=== PATIENT | female | born 1970 | race Caucasian/White ===

== ENCOUNTER → 2016-05-25 16:15 | Outpatient (CLI) | payer OTHER ==
[2012-03-12 11:30] VITALS: BMI 31.7
== END | disposition home or self-care (01) ==
LOC: D.MAMMO 05-23 09:30
DX: Z12.31 Encounter for screening mammogram for malignant neoplasm of breast (principal)

== ENCOUNTER → 2018-01-22 17:42 | Outpatient (CLI) | payer OTHER ==
[2012-03-12 11:30] VITALS: BMI 31.7
[2018-01-22 18:54] LABS: T4 THYROXIN - FREE 1.26 ng/dL (0.76-1.46); T4 THYROXINE 12.8 ug/dL (4.7-13.3); THYROID STIMULATING HORMONE 3.97 uIU/mL (0.36-3.74)
== END | disposition home or self-care (01) ==
LOC: D.LABREF 17:42
DX: R00.0 Tachycardia, unspecified (principal)

== ENCOUNTER → 2018-03-17 08:21 | Outpatient (CLI) | payer OTHER ==
[2012-03-12 11:30] VITALS: BMI 31.7
== END | disposition home or self-care (01) ==
LOC: D.HCCARDIO 03-14 09:00
DX: I20.9 Angina pectoris, unspecified (principal)

== ENCOUNTER 2018-09-09 12:57 | Emergency (ER) | payer OTHER ==
[~2018-09-09] VITALS: Ht 160 cm; Wt 99.1 kg
[2018-09-09 13:05] VITALS: BP 126/82; Ht 160 cm; Wt 99.1 kg
[2018-09-09] MEDS ORDERED: METOPROLOL TART50 MG PO (13:09)
== END 2018-09-09 14:39 | disposition left against medical advice (07) ==
LOC: D.ER 12:57
DX: I10 Essential (primary) hypertension (principal)

== ENCOUNTER 2019-08-13 16:33 | Emergency (ER) | payer OTHER ==
[~2019-08-13] VITALS: Ht 160 cm; Wt 113.6 kg
[~2019-08-13 16:33] MED LIST: METOPROLOL TART50 MG PO
[2019-08-13 16:43] VITALS: Ht 160 cm; Wt 113.6 kg
[2019-08-13] MEDS ORDERED: CARDIZEM120 MG PO (16:55)
[2019-08-13] MEDS ORDERED: OMEPRAZOLE20 M1 PO (16:56)
[2019-08-13] MEDS ORDERED: LUNESTA2 M1 PO (16:56)
[2019-08-13] MEDS ORDERED: PAMELOR 25 MG C25 MG PO (16:57)
[2019-08-13] MEDS ORDERED: NAPROSYN500 MG PO (16:57)
[2019-08-13] MEDS ORDERED: ORSYTHIA1 EACH PO (16:57)
[2019-08-13 17:30] LABS: BASOPHILS 0.4 % (0-2); EOSINOPHILS 1.5 % (0-7); HEMATOCRIT 38.4 % (36.0-48.0); IMMATURE GRANULOCYTES 0.2 % (0-5); LYMPHOCYTES 31.4 % (15-50); MCH 27.2 pg (26.0-34.0); MCHC 31.3 g/dL (31.0-37.0); MCV 87.1 fL (80.0-100.0); MEAN PLATELET VOLUME 10.1 fL (7.4-10.4); MONOCYTES 9.5 % (2-11); PLATELET COUNT 398 10x3/uL (130-400); RBC 4.41 10x6/uL (4.00-5.40); RDW 13.4 % (11.5-14.5); WBC 8.5 10x3/uL (4.8-10.8)
[2019-08-13 17:39] LABS: APTT 25.3 SECONDS (22.8-39.4); INR 0.98 (0.85-1.17)
[2019-08-13 17:47] LABS: CALC OSMOLALITY 274 mosm/kg (275-300); CALCIUM 8.5 mg/dL (8.5-10.1); CARBON DIOXIDE 27.8 mmol/L (21.0-32.0); CHLORIDE - SERUM 100 mmol/L (98-107); CREATININE - SERUM 1.2 mg/dL (0.6-1.3); GLUCOSE 149 mg/dL (74-106); POTASSIUM - SERUM 3.1 mmol/L (3.5-5.1); SODIUM 136 mmol/L (136-145); UREA NITROGEN 13 mg/dL (7-18); eGFR NON AFRICAN AMERICAN 51 mL/min (90-120)
[2019-08-13 18:03] LABS: ALBUMIN 3.5 g/dL (3.4-5.0); ALKALINE PHOSPHATASE 70 U/L (30-120); ALT (SGPT) 23 U/L (10-68); BILIRUBIN - TOTAL 0.42 mg/dL (0.2-1.3); CKMB 0.5 U/L (0.0-3.6); CREATINE KINASE 94 UL (21-215); PROTEIN - SERUM 7.7 g/dL (6.4-8.2)
[2019-08-13 18:10] LABS: TROPONIN-I < 0.017 ng/mL (0.000-0.060)
[2019-08-13] MEDS ORDERED: CARDIZEM60 MG PO (19:10)
[2019-08-13 19:28] VITALS: BP 120/77
== END 2019-08-13 19:28 | disposition home or self-care (01) ==
LOC: D.ER 16:33
PROVIDERS: Family Medicine
DX: R00.2 Palpitations (principal); R00.0 Tachycardia, unspecified; R53.1 Weakness; I10 Essential (primary) hypertension

== ENCOUNTER → 2019-08-27 12:29 | Outpatient (CLI) | payer OTHER ==
[2019-08-13 16:43] VITALS: BMI 44.3
[~2019-08-27 12:29] MED LIST changes: +CARDIZEM120 MG PO; +CARDIZEM60 MG PO; +LUNESTA2 M1 PO; +NAPROSYN500 MG PO; +OMEPRAZOLE20 M1 PO; +ORSYTHIA1 EACH PO; +PAMELOR 25 MG C25 MG PO
== END | disposition home or self-care (01) ==
LOC: D.HCCECHO 12:29
PROVIDERS: ATTEND Internal Medicine Cardiovascular Disease
DX: I47.1 Supraventricular tachycardia (principal)

== ENCOUNTER 2020-04-06 15:07 | Inpatient (IN) | payer OTHER ==
[~2020-04-06] VITALS: Ht 160 cm; Wt 109.1 kg
[2020-04-06 15:38] VITALS: Ht 160 cm; Wt 109.1 kg
[2020-04-06 16:29] LABS: BASOPHILS 0.1 % (0-2); EOSINOPHILS 0 % (0-7); HEMOGLOBIN 13.9 g/dL (12-16); IMMATURE GRANULOCYTES 0.9 % (0-5); LYMPHOCYTES 10.3 % (15-50); MCH 27.1 pg (26.0-34.0); MCHC 33.1 g/dL (31.0-37.0); MCV 81.9 fL (80.0-100.0); MEAN PLATELET VOLUME 10.9 fL (7.4-10.4); MONOCYTES 8.7 % (2-11); RBC 5.13 10x6/uL (4.00-5.40); RDW 13.9 % (11.5-14.5); WBC 9.8 10x3/uL (4.8-10.8)
[2020-04-06 16:36] LABS: PLATELET COUNT 281 10x3/uL (130-400)
[2020-04-06 16:37] LABS: APTT 24.5 SECONDS (22.8-39.4); INR 1.09 (0.85-1.17)
[2020-04-06 16:39] LABS: CALC OSMOLALITY 277 mosm/kg (275-300); CALCIUM 8.4 mg/dL (8.5-10.1); CARBON DIOXIDE 25.9 mmol/L (21.0-32.0); CHLORIDE - SERUM 100 mmol/L (98-107); GLUCOSE 139 mg/dL (74-106); POTASSIUM - SERUM 3.2 mmol/L (3.5-5.1); SODIUM 137 mmol/L (136-145); UREA NITROGEN 18 mg/dL (7-18); eGFR NON AFRICAN AMERICAN 62 mL/min (90-120)
[2020-04-06 16:56] LABS: ALBUMIN 3.1 g/dL (3.4-5.0); ALKALINE PHOSPHATASE 62 U/L (30-120); ALT (SGPT) 30 U/L (10-68); BILIRUBIN - TOTAL 0.46 mg/dL (0.2-1.3); CREATINE KINASE 17 UL (21-215); PRO BNP 16 pg/mL (0-125); PROTEIN - SERUM 7.8 g/dL (6.4-8.2); TROPONIN-I < 0.017 ng/mL (0.000-0.060)
[2020-04-06 19:00] VITALS: BP 129/87
[2020-04-06 21:00] VITALS: BP 118/68
[2020-04-06 22:00] VITALS: BP 118/64
[2020-04-07] MEDS ORDERED: BETAPACE 80 MG80 MG PO (01:27)
[2020-04-07] MEDS ORDERED: HCTZ25 MG PO (01:29)
[2020-04-07] MEDS ORDERED: CYMBALTA30 MG PO (01:30)
[2020-04-07 01:31] VITALS: BP 124/85
[2020-04-07 05:45] VITALS: BP 119/78
[2020-04-07 06:21] LABS: BASOPHILS 0.2 % (0-2); EOSINOPHILS 0 % (0-7); HEMATOCRIT 40.1 % (36.0-48.0); HEMOGLOBIN 13.1 g/dL (12-16); IMMATURE GRANULOCYTES 1.9 % (0-5); LYMPHOCYTE ABS# 0.86 10x3/uL (1.18-3.74); LYMPHOCYTES 14.7 % (15-50); MCH 27.1 pg (26.0-34.0); MCHC 32.7 g/dL (31.0-37.0); MCV 82.9 fL (80.0-100.0); MEAN PLATELET VOLUME 10.8 fL (7.4-10.4); MONOCYTES 8.2 % (2-11); PLATELET COUNT 301 10x3/uL (130-400); RBC 4.84 10x6/uL (4.00-5.40); RDW 13.8 % (11.5-14.5)
[2020-04-07 06:38] LABS: WBC 5.9 10x3/uL (4.8-10.8)
[2020-04-07 07:08] LABS: ANION GAP 13.7 mmol/L (8-16); BILIRUBIN - TOTAL 0.35 mg/dL (0.2-1.3); CALCIUM 8.5 mg/dL (8.5-10.1); CARBON DIOXIDE 27.9 mmol/L (21.0-32.0); MAGNESIUM - SERUM 2.6 mg/dL (1.8-2.4); POTASSIUM - SERUM 3.6 mmol/L (3.5-5.1); PROTEIN - SERUM 7.6 g/dL (6.4-8.2)
--- NOTE | 2020-04-07 07:50 | NUR ---
AM MEDS GIVEN AT THIS TIME PER EMAR. PT SITTING UP IN BED WITH HOB RAISED WATCHING TV. PT AAOX3, PLEASANT AND ANSWERS QUESTIONS APPROP. RR EVEN NON LABORED. O2 IN PLACE VIA NC. NO NEEDS VOICED AT THIS TIME. CLWR.
[2020-04-07 08:02] VITALS: BP 116/74
[2020-04-07 09:26] LABS: C-REACTIVE PROTEIN 8.4 mg/dL (0.0-0.9)
--- NOTE | 2020-04-07 11:21 | NUR ---
PT SITTING UP IN BED WITH HOB RAISED, RR EVEN NON LABORED. O2 IN PLACE VIA NC. PT AAOX3, PLEASANT. MEDS GIVEN PER EMAR INCLDUING PRN TYLENOL FROM HEADACHE. NO NEEDS VOICED. CLWR.
--- NOTE | 2020-04-07 15:29 | NUR ---
PT GIVEN SCHEDULED MEDICATIONS. PT REQUESTED NEW IV D/T PLACEMENT. NEW IV STARTED TO RIGHT FOREARM, 20G. PT RR EVEN NON LABORED. ISNTRUCTED ON INCENTIVE SPIROMETER. O2 IN PLACE. NO NEEDS VOICED. CLWR.
[2020-04-07 15:52] VITALS: BP 112/69
[2020-04-07 20:44] VITALS: BP 113/80
--- NOTE | 2020-04-08 01:40 | NUR ---
I have reviewed this patient and I concur with the Shift Assessment completed by the Licensed Practical Nurse today this shift.
[2020-04-08 07:01] LABS: BASOPHILS 0.1 % (0-2); EOSINOPHILS 0 % (0-7); HEMATOCRIT 39.1 % (36.0-48.0); HEMOGLOBIN 12.7 g/dL (12-16); IMMATURE GRANULOCYTES 0.8 % (0-5); LYMPHOCYTE ABS# 1.62 10x3/uL (1.18-3.74); LYMPHOCYTES 11.4 % (15-50); MCH 26.9 pg (26.0-34.0); MCHC 32.5 g/dL (31.0-37.0); MCV 82.8 fL (80.0-100.0); MONOCYTES 8.6 % (2-11); NEUTROPHIL ABS# 11.25 10x3/uL (1.56-6.13); NEUTROPHILS 79.1 % (40-80); PLATELET COUNT 348 10x3/uL (130-400); RBC 4.72 10x6/uL (4.00-5.40); RDW 14.2 % (11.5-14.5); WBC 14.2 10x3/uL (4.8-10.8)
[2020-04-08 07:03] LABS: ALBUMIN 2.7 g/dL (3.4-5.0); ANION GAP 12.5 mmol/L (8-16); BILIRUBIN - TOTAL 0.4 mg/dL (0.2-1.3); CALCIUM 8.4 mg/dL (8.5-10.1); CREATININE - SERUM 0.9 mg/dL (0.6-1.3); MAGNESIUM - SERUM 2.2 mg/dL (1.8-2.4); POTASSIUM - SERUM 3.5 mmol/L (3.5-5.1)
[2020-04-08 09:14] VITALS: BP 102/69
[2020-04-08 12:36] VITALS: BP 91/59; BP 97/66
[2020-04-08 15:24] VITALS: BP 110/65
[2020-04-08 19:32] VITALS: BP 106/72
--- NOTE | 2020-04-08 22:02 | NUR ---
NOTIFIED BY LAB THAT [facility] HAD BEEN READY FOR TWO HOURS. NOTIFIED [facility] WILL TRANSFUSE AFTER PM MEDS. PT AWARE. NO S/S OF DISTRESS. CL IN REACH. WILL CPOC.
[2020-04-09 00:16] VITALS: BP 119/62
[2020-04-09 05:09] VITALS: BP 102/65
--- NOTE | 2020-04-09 05:58 | NUR ---
FIRST UNIT OF [facility] INFUSING ORDERED. PT TOLERATING WELL. NO DISTRESS. CL IN REACH
[2020-04-09 06:48] LABS: BASOPHILS 0.2 % (0-2); EOSINOPHILS 0 % (0-7); HEMATOCRIT 38.8 % (36.0-48.0); HEMOGLOBIN 12.4 g/dL (12-16); IMMATURE GRANULOCYTES 1.9 % (0-5); LYMPHOCYTES 27.1 % (15-50); MCH 26.7 pg (26.0-34.0); MCV 83.4 fL (80.0-100.0); MEAN PLATELET VOLUME 10.5 fL (7.4-10.4); MONOCYTES 11.8 % (2-11); NEUTROPHIL ABS# 5.02 10x3/uL (1.56-6.13); PLATELET COUNT 294 10x3/uL (130-400); RBC 4.65 10x6/uL (4.00-5.40); RDW 14.1 % (11.5-14.5)
[2020-04-09 06:49] LABS: WBC 8.5 10x3/uL (4.8-10.8)
[2020-04-09 07:00] VITALS: BP 103/69
[2020-04-09 08:08] LABS: CREATININE - SERUM 0.9 mg/dL (0.6-1.3)
[2020-04-09 08:09] LABS: ALBUMIN 2.8 g/dL (3.4-5.0); ALKALINE PHOSPHATASE 55 U/L (30-120); ALT (SGPT) 21 U/L (10-68); BILIRUBIN - TOTAL 0.46 mg/dL (0.2-1.3); CALC OSMOLALITY 277 mosm/kg (275-300); CALCIUM 8.3 mg/dL (8.5-10.1); CARBON DIOXIDE 28.7 mmol/L (21.0-32.0); CHLORIDE - SERUM 101 mmol/L (98-107); CREATININE - SERUM 0.8 mg/dL (0.6-1.3); GLUCOSE 106 mg/dL (74-106); MAGNESIUM - SERUM 2.3 mg/dL (1.8-2.4); POTASSIUM - SERUM 3.6 mmol/L (3.5-5.1); PROTEIN - SERUM 6.4 g/dL (6.4-8.2); SODIUM 138 mmol/L (136-145); UREA NITROGEN 19 mg/dL (7-18); eGFR NON AFRICAN AMERICAN 81 mL/min (90-120)
--- NOTE | 2020-04-09 08:43 | NUR ---
AM MEDS GIVEN AT THIS TIME. PT A/O X4, RESP EVEN AND NONLABORED ON 5L NC. RT AC AND LT AC IV SL. SR 67 WITH 1 DEGRRE BLOCK. PT DENIES ANY NEEDS AT THIS TIME. CALL LIGHT IN REACH, WILL CONTINUE PLAN OF CARE.
[2020-04-09 12:00] VITALS: BP 101/51
[2020-04-09 15:00] VITALS: BP 99/61
--- NOTE | 2020-04-09 17:02 | NUR ---
RT AC IV INFILTRATED, D/C IV WITH CATHETER TIP INTACT. NEW 20G IV STARTED TO RT HAND X1 STICK, PT TOLERATED WELL, IVPB REMDESIVIR HUNG AT THIS TIME.
[2020-04-09 20:30] VITALS: BP 104/55
--- NOTE | 2020-04-09 21:00 | NUR ---
RECEIVED PATIENT SITTING UP IN BED WATCHING TV. NO S/.S. OF DISTRESS. ASSESSMENT COMPLETE. MEDS TO BE PASSED SHORTLY. INSTRCUTED PATIENT TO CALL OUT WIT ANY NEEDS. PVU.
[2020-04-10] VITALS (8 sets, daily range): BP systolic 91–123; BP diastolic 54–710
--- NOTE | 2020-04-10 | NUR ---
PATIENT AWAKE IN ROOM WATCHING TV. NO S/S OF DITRESS. AAOX4. DENIES PAIN OR INCRESED SOB. 02 AT 5L NC. DENIES ANY NEEDS OR CONCERNS AT THIS TIME. INSTRUCTED PATIENT TO CALL OUT WITH ANY NEEDS. PVU.
[2020-04-10 05:59] LABS: BASOPHILS 0.1 % (0-2); EOSINOPHILS 0.1 % (0-7); HEMATOCRIT 37.2 % (36.0-48.0); HEMOGLOBIN 12.1 g/dL (12-16); IMMATURE GRANULOCYTES 1.4 % (0-5); LYMPHOCYTE ABS# 1.77 10x3/uL (1.18-3.74); LYMPHOCYTES 16.8 % (15-50); MCH 26.8 pg (26.0-34.0); MCHC 32.5 g/dL (31.0-37.0); MCV 82.3 fL (80.0-100.0); MEAN PLATELET VOLUME 10.3 fL (7.4-10.4); MONOCYTES 11.5 % (2-11); NEUTROPHIL ABS# 7.41 10x3/uL (1.56-6.13); NEUTROPHILS 70.1 % (40-80); PLATELET COUNT 290 10x3/uL (130-400); RBC 4.52 10x6/uL (4.00-5.40); RDW 13.9 % (11.5-14.5); WBC 10.6 10x3/uL (4.8-10.8)
[2020-04-10 06:31] LABS: ALBUMIN 2.6 g/dL (3.4-5.0); ALKALINE PHOSPHATASE 56 U/L (30-120); ALT (SGPT) 20 U/L (10-68); BILIRUBIN - TOTAL 0.63 mg/dL (0.2-1.3); CALC OSMOLALITY 269 mosm/kg (275-300); CALCIUM 8.7 mg/dL (8.5-10.1); CARBON DIOXIDE 27.7 mmol/L (21.0-32.0); CHLORIDE - SERUM 99 mmol/L (98-107); CREATININE - SERUM 0.8 mg/dL (0.6-1.3); GLUCOSE 123 mg/dL (74-106); MAGNESIUM - SERUM 2.1 mg/dL (1.8-2.4); POTASSIUM - SERUM 3.2 mmol/L (3.5-5.1); PROTEIN - SERUM 6.8 g/dL (6.4-8.2); SODIUM 134 mmol/L (136-145); UREA NITROGEN 16 mg/dL (7-18); eGFR NON AFRICAN AMERICAN 81 mL/min (90-120)
--- NOTE | 2020-04-10 09:54 | NUR ---
INFORMED DR. SOARES THAT PT IS ASKING FOR SOMETHING ELSE FOR HER HEADACHE, STATES TRAMADOL AND TYLENOL ARE NOT HELPING. NEW ORDER FOR FIORECET ONE TIME DOSE.
--- NOTE | 2020-04-10 11:00 | NUR ---
PT STATES THAT HER HEADACHE IS GONE, DENIES ANY NEEDS AT THIS TIME. CALL LIGHT IN REACH.
--- NOTE | 2020-04-10 11:24 | NUR ---
PLASMA STARTED INFUSING AT THIS TIME. VITAL SIGNS STABLE, PT DENIES ANY NEEDS AT THIS TIME, WILL MONITOR FOR FIRST 15MIN.
--- NOTE | 2020-04-10 17:25 | NUR ---
CALLED ROBLES ESPARZA APRN AND INFORMED HER THAT PT IS HAVING MIGRAINE AGAIN THAT DR. SOARES GAVE HER A ONE TIME DOSE OF FIORECET THIS AM FOR HER MIGRAINE AND PT WANTS TO KNOW IF SHE CAN HAVE IT AGAIN, PER ROBLES ESPARZA APRN ORDER FIORECET Q6PRN.
--- NOTE | 2020-04-10 17:56 | NUR ---
GAVE FIORICET FOR PAIN LEVEL OF 6/10. IVPB REMDESIVIR HUNG AT THIS TIME. PT DENIES ANY OTHER NEEDS AT THIS TIME. CALL LIGHT IN REACH.
--- NOTE | 2020-04-10 19:11 | NUR ---
pt awake watching tv, eating chips, denies any needs. Will cotninue to monitor
[2020-04-11] VITALS (7 sets, daily range): BP systolic 98–126; BP diastolic 55–82
[2020-04-11 09:02] LABS: BASOPHILS 0.1 % (0-2); EOSINOPHILS 0.5 % (0-7); HEMATOCRIT 39.6 % (36.0-48.0); HEMOGLOBIN 12.8 g/dL (12-16); IMMATURE GRANULOCYTES 1.4 % (0-5); LYMPHOCYTE ABS# 1.57 10x3/uL (1.18-3.74); LYMPHOCYTES 11.6 % (15-50); MCH 27.1 pg (26.0-34.0); MCHC 32.3 g/dL (31.0-37.0); MCV 83.9 fL (80.0-100.0); MEAN PLATELET VOLUME 10.3 fL (7.4-10.4); MONOCYTES 10.3 % (2-11); NEUTROPHILS 76.1 % (40-80); PLATELET COUNT 330 10x3/uL (130-400); RBC 4.72 10x6/uL (4.00-5.40); RDW 13.8 % (11.5-14.5)
[2020-04-11 09:14] LABS: WBC 13.5 10x3/uL (4.8-10.8)
[2020-04-11 09:22] LABS: ALBUMIN 2.8 g/dL (3.4-5.0); ANION GAP 9.9 mmol/L (8-16); BILIRUBIN - TOTAL 0.68 mg/dL (0.2-1.3); CARBON DIOXIDE 28.2 mmol/L (21.0-32.0); MAGNESIUM - SERUM 2.2 mg/dL (1.8-2.4); PROTEIN - SERUM 7.4 g/dL (6.4-8.2)
[2020-04-11 09:23] LABS: POTASSIUM - SERUM 4.1 mmol/L (3.5-5.1)
--- NOTE | 2020-04-11 15:30 | NUR ---
PT'S O2 STAYING 96-98 ON 3L NC, TURNED O2 DOWN TO 2L, AFTER 3MIN O2 RUNNING 96%. ALL NEEEDS MET, CALL LIGHT IN REACH.
--- NOTE | 2020-04-11 17:41 | NUR ---
FIORECET GIVEN FOR PAIN LEVEL OF 4/10. ALSO PROVIDED PT WITH ICE WATER. PT RESTING COMFORTABLY IN BED, DENIES ANY OTHER NEEDS, CALL LIGHT IN REACH.
--- NOTE | 2020-04-11 21:18 | NUR ---
PT RIGHT HAND piv INFILTRATED, TENDER, SLIGHTLY SOWLLEN, UNBALE TO REPLACE SPOKE WITH MADDY MARTINEZ PA WILL LEAVE PIV OUT AND CHANGE AZITHROMYCIN TO PO CHANGE ROCPEHIN TO OMNICEF BOTH FOR 5 DAYS TOTAL
[2020-04-12 07:12] LABS: ALBUMIN 2.5 g/dL (3.4-5.0); ALKALINE PHOSPHATASE 54 U/L (30-120); ALT (SGPT) 17 U/L (10-68); BILIRUBIN - TOTAL 0.49 mg/dL (0.2-1.3); CALC OSMOLALITY 272 mosm/kg (275-300); CALCIUM 8.4 mg/dL (8.5-10.1); CARBON DIOXIDE 28.9 mmol/L (21.0-32.0); CHLORIDE - SERUM 102 mmol/L (98-107); CREATININE - SERUM 0.8 mg/dL (0.6-1.3); GLUCOSE 100 mg/dL (74-106); POTASSIUM - SERUM 3.8 mmol/L (3.5-5.1); PROTEIN - SERUM 6.7 g/dL (6.4-8.2); SODIUM 137 mmol/L (136-145); UREA NITROGEN 11 mg/dL (7-18); eGFR NON AFRICAN AMERICAN 81 mL/min (90-120)
[2020-04-12 07:16] LABS: BASOPHILS 0.1 % (0-2); HEMATOCRIT 36.1 % (36.0-48.0); HEMOGLOBIN 11.5 g/dL (12-16); IMMATURE GRANULOCYTES 1.9 % (0-5); LYMPHOCYTE ABS# 1.48 10x3/uL (1.18-3.74); LYMPHOCYTES 14.8 % (15-50); MCH 26.6 pg (26.0-34.0); MCHC 31.9 g/dL (31.0-37.0); MCV 83.6 fL (80.0-100.0); MEAN PLATELET VOLUME 10.1 fL (7.4-10.4); MONOCYTES 13.8 % (2-11); NEUTROPHIL ABS# 6.82 10x3/uL (1.56-6.13); NEUTROPHILS 68.4 % (40-80); PLATELET COUNT 309 10x3/uL (130-400); RBC 4.32 10x6/uL (4.00-5.40); RDW 13.9 % (11.5-14.5)
[2020-04-12 08:05] VITALS: BP 98/59
--- NOTE | 2020-04-12 08:29 | NUR ---
AM MEDS GIVEN AT THIS TIME PER EMAQuan PRINCE IN ROOM AND SPOKE WITH PT REGARDING BEING ABLE TO D/C HOME. WILL AMBULATE PT AND SEE TOLERANCE. PT AAOX3 PLEASANT AND ANSWERS QUESTIONS APPROP. NO FURTHER NEEDS VOICED. CLWR.
--- NOTE | 2020-04-12 09:40 | NUR ---
PT PLACED ON ROOM AIR AND SATURATION WAS 87%. PLACED BACK ONTO O2 AT 2L SATURATION INCREASED TO 93%. PT AMBULATED IN ROOM WITH O2 IN PLACE. SATURATION VARIED BETWEEN 88%-91% WITH O2 AT 2L. PT APPEARS SOB WITH EXERTION. RR EVEN , SLIGHTY TACHY. ENCOURAGED PT TO TAKE SLOW DEEP BREATHS. PT STATES UNDERSTANDING AND FOLLOWED INSTRUCTION. O2 SATURATION WHILE SITTING WITH O2 IN PLACE IS 92%. PT DOES NOT APPEAR IN DISTRESS. NO NEEDS VOICED. CLWR.
[2020-04-12 11:08] VITALS: BP 118/66
--- NOTE | 2020-04-12 11:15 | NUR ---
PT SITTING UP IN BED WATCHING TV, RR EVEN NON LABORED. NO NEEDS VOICED. HAT GIVEN TO PT BROUGHT BY FAMILY MEMBER, NO NEEDS VOICED AT THIS TIME. CLWR.
[2020-04-12] MEDS ORDERED: OMNICEF300 MG PO (12:17)
[2020-04-12] MEDS ORDERED: COMBIVENT RESPIM4 GM INH (12:18)
[2020-04-12] MEDS ORDERED: ZITHROMAX250 MG PO (12:18)
[2020-04-12] MEDS ORDERED: VENTOLIN HFA [SP8 GM INH (12:19)
[2020-04-12] MEDS ORDERED: ZINC-220220 MG PO (12:20)
[2020-04-12] MEDS ORDERED: TESSALON PERLE100 MG PO (12:20)
[2020-04-12] MEDS ORDERED: MUCINEX600 MG PO (12:21)
[2020-04-12] MEDS ORDERED: VITAMIN D325 MC1 PO (12:21)
[2020-04-12] MEDS ORDERED: DULERA 200 MCG8.8 GM INH (12:21)
[2020-04-12] MEDS ORDERED: MELATONIN 3 MG1 TAB PO (12:21)
[2020-04-12] MEDS ORDERED: FLORAJEN3 CAPS460 MG PO (12:21)
[2020-04-12] MEDS ORDERED: VITAMIN C500 M1 PO (12:22)
[2020-04-12] MEDS ORDERED: TORADOL10 MG PO (12:22)
[2020-04-12] MEDS ORDERED: BUTALB-APAP-CA1 EACH PO (12:23)
--- NOTE | 2020-04-12 12:30 | NUR ---
SCHEDULED MED GIVEN PER EMAR. PT LYING IN BED WITH HOB RAISED, O2 IN PLACE VIA NC. RR EVEN NON LABORED. NO NEEDS VOICED AT THIS TIME. CLWR.
--- NOTE | 2020-04-12 13:22 | NUR ---
D/C INSTRUCTIONS GIVEN TO PT AT THIS TIME INCLUDING MEDICATIONS, FOLLOW UP APPOINTMENTS AND SIGNS AND SYMPTOMS TO MONITOR. PT STATES UNDERSTANDING. INSTRUCTED PT REGARDING HOME O2 AND WAITING FOR PORTABLE TO ARRIVE FOR D/C HOME. PT STATES UNDERSTANDING. NO DISTRESS NOTED. RR EVEN NON LABORED, O2 IN PLACE. WILL CONTINUE TO MONITOR.
--- NOTE | 2020-04-12 14:01 | NUR ---
NOTIFIED PT OF O2 ARRIVAL. PT STATES UNDERSTANDING AND IS GATHERING HER BELONGINGS. PT DENIES NEEDING ASSISTANCE AT THIS TIME. EDUCATION GIVEN REGARDING NUMBER TO CALL FOR HOME O2 UPON D/C. PT STATES UNDERSTANDING. NO NEEDS VOICED. CLWR.
--- NOTE | 2020-04-12 15:01 | NUR ---
PT WHEELED OUT TO PRIVATE VEHICLE AT THIS TIME BY PCT WITH ALL BELONGINGS WITH PT TIME OF DEPARTURE. PORTABLE O2 CONNECTED AND WITH PT INCLUDING PHONE NUMBER TO CALL FOR HOME SET UP. NO DITRESS NOTED ON DEPARTURE.
--- NOTE | 2020-04-14 00:02 | MORECARE ---
CASE MANAGEMENT DISCHARGE SUMMARY PATIENT: PREMA MORENO UNIT: [id number] ADM DATE: 04/06/20 AGE: 49 : 70 SEX: F ROOM/BED: D.4290 AUTHOR: AUDREY,DOC PHYSICIAN: REFERRING PHYSICIAN: TENZIN LARRY MD DATE OF SERVICE: 04/14/20 Discharge Plan Patient Name: PREMA MORENO Facility: [facility]:[place] : 1970 Planned Disposition: Home Anticipated Discharge Date: Discharge Date: 04/12/2020 Expected LOS: Initial Reviewer: [email or web address] Initial Review Date: 04/06/2020 Generated: 04/14/20 1:01 am Comments DCP- Discharge Planning Updated by [id number]: Lorraine Bernard on 04/13/20 10:[address] Patient Name: PREMA MORENO Admission Status: ER Accout number: [id number] Admission Date: 04-06-2020 : 1970 Admission Diagnosis:COVID-19 Attending: TENZIN LARRY Current LOS: 6 Anticipated DC Date: Planned Disposition: Home Primary Insurance: [employer] Discharge Planning Comments: CM met with patient to complete initial dc planning assessment. CM educated patient on the CM role and verbal consent given by patient to complete assessment. Patient lives at home with family. Patient is independent. At discharge patient plans to return home and feels this is a safe discharge. CM discussed availability of home health, rehab services, and medical equipment. [facility] for [facility] for [place] 02. Patient will have family to transport home. Patient denied known discharge needs at this time. CM will continue to follow and will assist as needed with dc plans/needs. potable 02 delivered to patient room prior to discharge and concentrator delivered to home Military Nurse: Lorraine Bernard DCPIA - Discharge Planning Initial Assessment Updated by [email or web address]: Lorraine Bernard on 04/13/20 11:56 pm * Is the patient Alert and Oriented? Yes * How many steps to enter\exit or inside your home? * PCP [facility] * Pharmacy [facility] * Preadmission Environment Home with Family * ADLs Independent * Equipment None * List name and contact numbers for known caregivers / representatives who currently or will assist patient after discharge: SHARATH MORENO - SPOUSE - [phone] * Verbal permission to speak to the caregivers and representatives has been obtained from the patient. Yes * Community resources currently utilized None * Additional services required to return to the preadmission environment? No * Can the patient safely return to the preadmission environment? Yes * Has this patient been hospitalized within the prior 30 days at any hospital? No External Providers External Provider: Yoko Next Contact Date: Service Request Date: Service Type: Resolution: Reviewer: Comments: Coverage Notice Reviewer: [id number] Shreya Bernard Notice Issued Date-Time: 04/12/2020 10:00 Notice Type: Patient Choice Letter Notice Delivered To: Patient Relationship to Patient: Self Watch Inspector Name: Delivery Method: HAND - Hand Delivered Laura Days: Prior Verbal Notification: Yes Recipient Understood Notice: Yes Recipient Signature: Med Rec Note Co-signed by Attending: Coverage Notice Comment: RUSLAN Patient Name: PREMA MORENO Page [id number] at 0002 All edits/amendments must be made on the electronic document DICTATION DATE: 04/14/20 0001 EP TECHNOLOGIST: GÉNESIS 04/14/20 0001 RPT#: [id number] DC DATE:04/12/20 STATUS: DIS IN [facility] [address] [place] [address] END OF REPORT
== END 2020-04-12 15:00 | disposition home or self-care (01) | DRG 177 ==
LOC: D.ER 15:07 → D.EDHOLD 17:31 → D.M2 17:31
PROVIDERS: Family Medicine; Internal Medicine Pulmonary Disease; ADMIT Family Medicine; ATTEND Family Medicine
PROC: XW033E5 Introduction of Remdesivir Anti-infective into Peripheral Vein, Percutaneous Approach, New Technology Group 5 (ICD-10-PCS; principal; 2020-04-07)
PROC: XW13325 Transfusion of Convalescent Plasma (Nonautologous) into Peripheral Vein, Percutaneous Approach, New Technology Group 5 (ICD-10-PCS; 2020-04-09)
DX: U07.1 COVID-19 (principal); J12.82 Pneumonia due to coronavirus disease 2019; J96.01 Acute respiratory failure with hypoxia; Z68.41 Body mass index [BMI] 40.0-44.9, adult; J98.11 Atelectasis; E87.6 Hypokalemia; I10 Essential (primary) hypertension; E66.9 Obesity, unspecified

== ENCOUNTER 2020-06-08 18:49 | Inpatient (IN) | payer OTHER ==
[~2020-06-08] VITALS: Ht 160 cm; Wt 113.6 kg
[~2020-06-08 18:49] MED LIST changes: +BETAPACE 80 MG80 MG PO; +BUTALB-APAP-CA1 EACH PO; +COMBIVENT RESPIM4 GM INH; +CYMBALTA30 MG PO; +DULERA 200 MCG8.8 GM INH; +FLORAJEN3 CAPS460 MG PO; +HCTZ25 MG PO; +MELATONIN 3 MG1 TAB PO; +MUCINEX600 MG PO; +OMNICEF300 MG PO; +TESSALON PERLE100 MG PO; +TORADOL10 MG PO; +VENTOLIN HFA [SP8 GM INH; +VITAMIN C500 M1 PO; +VITAMIN D325 MC1 PO; +ZINC-220220 MG PO; +ZITHROMAX250 MG PO
[2020-06-08 19:00] VITALS: BP 127/72
[2020-06-08 19:39] LABS: BASOPHILS 0.5 % (0-2); EOSINOPHILS 0.1 % (0-7); HEMOGLOBIN 12.3 g/dL (12-16); IMMATURE GRANULOCYTES 0.3 % (0-5); LYMPHOCYTE ABS# 2.63 10x3/uL (1.18-3.74); LYMPHOCYTES 34.8 % (15-50); MCH 27.6 pg (26.0-34.0); MCHC 32.4 g/dL (31.0-37.0); MCV 85.4 fL (80.0-100.0); MONOCYTES 9.3 % (2-11); NEUTROPHIL ABS# 4.16 10x3/uL (1.56-6.13); PLATELET COUNT 355 10x3/uL (130-400); RBC 4.45 10x6/uL (4.00-5.40); RDW 15.1 % (11.5-14.5); WBC 7.6 10x3/uL (4.8-10.8)
[2020-06-08 19:49] LABS: APTT 23.5 SECONDS (22.8-39.4); INR 1.1 (0.85-1.17); PROTIME 13.1 SECONDS (11.6-15.0)
[2020-06-08 19:51] LABS: CALC OSMOLALITY 281 mosm/kg (275-300); CARBON DIOXIDE 26.4 mmol/L (21.0-32.0); CHLORIDE - SERUM 103 mmol/L (98-107); CREATININE - SERUM 1.2 mg/dL (0.6-1.3); GLUCOSE 138 mg/dL (74-106); POTASSIUM - SERUM 3.2 mmol/L (3.5-5.1); SODIUM 140 mmol/L (136-145); UREA NITROGEN 14 mg/dL (7-18); eGFR NON AFRICAN AMERICAN 51 mL/min (90-120)
[2020-06-08 20:00] VITALS: BP 105/78
[2020-06-08 20:10] LABS: ALBUMIN 4.1 g/dL (3.4-5.0); ALKALINE PHOSPHATASE 77 U/L (30-120); ALT (SGPT) 112 U/L (10-68); BILIRUBIN - TOTAL 0.53 mg/dL (0.2-1.3); CKMB 0.6 U/L (0.0-3.6); CREATINE KINASE 89 UL (21-215); PROTEIN - SERUM 7.7 g/dL (6.4-8.2); THYROID STIMULATING HORMONE 3.06 uIU/mL (0.36-3.74); TROPONIN-I < 0.017 ng/mL (0.000-0.060)
--- NOTE | 2020-06-08 20:47 | NUR ---
URINE SENT TO LAB
[2020-06-08 21:00] VITALS: BP 104/73
[2020-06-08 21:10] LABS: BILIRUBIN NEGATIVE (NEGATIVE); KETONE NEGATIVE (NEGATIVE); NITRITE NEGATIVE (NEGATIVE); UROBILINOGEN NORMAL mg/dL (< 2)
[2020-06-08 21:11] LABS: BACTERIA MANY HPF (NONE SEEN)
[2020-06-08 21:35] LABS: UDS - AMPHET POSITIVE QUAL (NEGATIVE); UDS - BARB NEGATIVE QUAL (NEGATIVE); UDS - BENZO NEGATIVE QUAL (NEGATIVE); UDS - COCAINE NEGATIVE QUAL (NEGATIVE); UDS - OPIATE NEGATIVE QUAL (NEGATIVE); UDS - PCP NEGATIVE QUAL (NEGATIVE); UDS - THC POSITIVE QUAL (NEGATIVE)
[2020-06-08 22:00] VITALS: BP 99/59
[2020-06-08 23:00] VITALS: BP 106/58
[2020-06-08 23:33] VITALS: BP 118/77; BMI 44.3
[2020-06-09 00:52] VITALS: BP 118/77
[2020-06-09 01:40] LABS: CKMB 0.6 U/L (0.0-3.6); CREATINE KINASE 80 UL (21-215)
[2020-06-09 01:43] LABS: TROPONIN-I < 0.017 ng/mL (0.000-0.060)
[2020-06-09 04:00] VITALS: BP 109/64
--- NOTE | 2020-06-09 04:19 | NUR ---
PT BROUGHT TO THE FLOOR VIA WHEELCHAIR BY NURSING STAFF. NO COMPLAINTS OF PAIN NOR DISTRESS NOTED. PT IS ABLE TO MAKE WANTS AND NEEDS KNOWN. PT IS ON ROOM AIR, YET SHE STATES SHE WEARS O2 AT NIGHT SINCE SHE HAS HAD COVID IN THE PAST. ALERT AND ORIENTED X4. SKIN INTACT. TELEMETRY IN PLACE. PTS BED IS IN LOW POSITION AND CALL LIGHT IS IN REACH.
[2020-06-09 07:11] LABS: BASOPHILS 0.4 % (0-2); EOSINOPHILS 0.1 % (0-7); HEMATOCRIT 34.5 % (36.0-48.0); HEMOGLOBIN 10.7 g/dL (12-16); IMMATURE GRANULOCYTES 0.3 % (0-5); LYMPHOCYTE ABS# 2.72 10x3/uL (1.18-3.74); LYMPHOCYTES 34.7 % (15-50); MCH 26.6 pg (26.0-34.0); MCV 85.6 fL (80.0-100.0); MEAN PLATELET VOLUME 11.2 fL (7.4-10.4); MONOCYTES 10.1 % (2-11); NEUTROPHIL ABS# 4.27 10x3/uL (1.56-6.13); NEUTROPHILS 54.4 % (40-80); PLATELET COUNT 336 10x3/uL (130-400); RBC 4.03 10x6/uL (4.00-5.40); RDW 15.2 % (11.5-14.5); WBC 7.8 10x3/uL (4.8-10.8)
[2020-06-09 07:34] LABS: ALBUMIN 3.6 g/dL (3.4-5.0); ALKALINE PHOSPHATASE 70 U/L (30-120); ALT (SGPT) 89 U/L (10-68); BILIRUBIN - TOTAL 0.42 mg/dL (0.2-1.3); C-REACTIVE PROTEIN 0.6 mg/dL (0.0-0.9); CALC OSMOLALITY 285 mosm/kg (275-300); CALCIUM 8.8 mg/dL (8.5-10.1); CARBON DIOXIDE 28.8 mmol/L (21.0-32.0); CHLORIDE - SERUM 106 mmol/L (98-107); CKMB 0.4 U/L (0.0-3.6); CREATINE KINASE 69 UL (21-215); CREATININE - SERUM 0.9 mg/dL (0.6-1.3); GLUCOSE 106 mg/dL (74-106); MAGNESIUM - SERUM 2.2 mg/dL (1.8-2.4); PHOSPHOROUS 4.3 mg/dL (2.5-4.9); POTASSIUM - SERUM 3.3 mmol/L (3.5-5.1); PROTEIN - SERUM 6.8 g/dL (6.4-8.2); SODIUM 143 mmol/L (136-145); THYROID STIMULATING HORMONE 1.23 uIU/mL (0.36-3.74); TROPONIN-I < 0.017 ng/mL (0.000-0.060); UREA NITROGEN 15 mg/dL (7-18); eGFR NON AFRICAN AMERICAN 70 mL/min (90-120)
[2020-06-09] MEDS ORDERED: FUROSEMIDE20 MG PO (07:48)
--- NOTE | 2020-06-09 08:16 | NUR ---
0816 TRANSPORTED TO RADIOLOGY VIA FOR CT
--- NOTE | 2020-06-09 08:16 | NUR ---
0700 BEDSIDE REPORT RECEIVED AWAKE ALERT NO C/O PAIN
[2020-06-09 08:27] VITALS: BP 126/99
[2020-06-09 11:25] LABS: ERYTHROCYTE SEDIMENTATION RATE 13 mm/hr (0-20)
[2020-06-09 11:55] VITALS: Ht 160 cm; Wt 113.6 kg
--- NOTE | 2020-06-09 11:55 | NUR ---
1155 REPORT GIVEN TO MIN LARSON
[2020-06-09 12:43] VITALS: BP 138/78
[2020-06-09 13:16] LABS: CKMB 0.3 U/L (0.0-3.6); CREATINE KINASE 67 UL (21-215); TROPONIN-I < 0.017 ng/mL (0.000-0.060)
[2020-06-09 17:57] VITALS: BP 104/72; BP 117/71
--- NOTE | 2020-06-09 19:17 | NUR ---
discharge paperwork signed, @ er entrance. denies needs
== END 2020-06-09 19:18 | disposition home or self-care (01) | DRG 69 ==
LOC: D.ER 18:49 → D.MS 21:19 → OBSVTIME 21:20 → D.MS 06-09 17:57
PROVIDERS: Family Medicine; ADMIT Emergency Medicine; ATTEND Emergency Medicine
DX: G45.9 Transient cerebral ischemic attack, unspecified (principal); R55 Syncope and collapse; I10 Essential (primary) hypertension; K21.9 Gastro-esophageal reflux disease without esophagitis; F41.8 Other specified anxiety disorders; E87.6 Hypokalemia

== ENCOUNTER → 2020-06-15 12:42 | Outpatient (CLI) | payer OTHER ==
[2020-06-09 11:55] VITALS: BMI 44.3
[~2020-06-15 12:42] MED LIST changes: +FUROSEMIDE20 MG PO
== END | disposition home or self-care (01) ==
LOC: D.RT 12:42
PROVIDERS: ATTEND Internal Medicine Pulmonary Disease
DX: Z87.01 Personal history of pneumonia (recurrent) (principal); R06.09 Other forms of dyspnea

== ENCOUNTER → 2020-08-08 13:09 | Outpatient (CLI) | payer OTHER ==
[2020-06-09 11:55] VITALS: BMI 44.3
== END | disposition home or self-care (01) ==
LOC: D.CT 13:09
PROVIDERS: ATTEND Internal Medicine Pulmonary Disease
DX: J98.4 Other disorders of lung (principal)